=== PATIENT | female | born 1940 | race Caucasian/White ===

== ENCOUNTER 2017-04-30 09:44 | Emergency (ER) | payer MEDICARE, BC ==
[2017-04-30 09:49] VITALS: TEMP 97.6
[2017-04-30] MEDS ORDERED: ASPIRIN 81 MG CHEWABLE CTB PO STA (09:52)
[2017-04-30] MEDS ORDERED: NITROGLYCERIN 0.4 MG TAB SL ONE (09:52)
[2017-04-30] MEDS ORDERED: SODIUM CHLORIDE 0.9% FLUSH 10 ML SOL IV PRN (09:52)
[2017-04-30] MEDS ORDERED: NITROGLYCERIN 0.4 MG TAB SL PRN (09:52)
[2017-04-30] MEDS ORDERED: ASPIRIN 81 MG CHEWABLE CTB ONE (09:53)
[2017-04-30] MEDS ORDERED: LORAZEPAM 2 MG/ML 10ML MDV 2 MG/ML VIAL IV PRN (10:11)
[2017-04-30] MEDS ORDERED: SODIUM CHLORIDE 0.9% 1000ML 1,000 ML IV SCH (10:15)
[2017-04-30] MEDS ORDERED: LORAZEPAM 2 MG/ML SOL ONE (10:18)
[2017-04-30 10:25] LABS: CALCIUM 8.9 mg/dl (8.5-10.1); GLOM FILT RATE 55 mL/min (>60); POTASSIUM 3.4 mMol/L (3.5-5.1); SODIUM 140 mMol/L (136-145)
[2017-04-30 10:29] LABS: BASOPHILS % (AUTO) 2 % (0-3); EOSINOPHILS % (AUTO) 2 % (0-9); HEMATOCRIT 39 % (35-47); MEAN CORPUSCULAR HGB CONC 34.6 gm/dl (32.0-36.0); MEAN CORPUSCULAR VOLUME 93 fL (81-99); MONOCYTES % (AUTO) 7.4 % (0-12); NEUTROPHILS % (AUTO) 51.1 % (37-80)
[2017-04-30] MEDS ORDERED: POTASSIUM CHLORIDE 10 MEQ TER PO ONE (11:03)
[2017-04-30] MEDS ORDERED: POTASSIUM CHLORIDE 10 MEQ TER ONE (12:19)
[2017-04-30 13:14] VITALS: BP 123/83; PULSE 69; RESP 12; O2SAT 97
== END 2017-04-30 12:44 | disposition home or self-care (01) | DRG 310 ==
LOC: ED 09:44
DX: I48.91 Unspecified atrial fibrillation (principal); I49.9 Cardiac arrhythmia, unspecified; Z79.01 Long term (current) use of anticoagulants; R07.89 Other chest pain
CPT/HCPCS: 71045; 80048; 82550; 83880; 84484; 85025; 85610; 85730; 93005; 99285; J2060; A9270-GY